=== PATIENT | male | born 1945 | race Asian ===

== ENCOUNTER → 2019-10-26 | Outpatient (CLI) | payer MEDICARE ==
[~2019-10-26] MED LIST: AMANTIDINE PO; ASPIRIN325 MG PO; ASPIRIN81 MG PO; CARBIDOPA/LEVODOPA PO; CEPHALEXIN; CIPROFLOXACIN; CLONAZEPAM0.5 M1 PO; COMTAN200 MG; FINESTERIDE PO; LEVOTHYROXIN PO; MYRBETRIQ25 MG PO; NEUPRO1 EAC1; OXYBUTYNIN CHLOR5 MG PO; RAPAFLO; RAPAFLO8 MG PO; TAMSULOSIN HCL0.4 MG PO; ZOCOR20 MG PO
--- NOTE | 2019-10-26 15:34 | Diagnostic Imaging Report ---
EXAM: Renal Ultrasound INDICATION: ^[id number] ^[id number] ^CYST OF KIDNEY COMPARISON: None TECHNIQUE: Transverse and longitudinal images of the kidneys and bladder were obtained. FINDINGS: Right Kidney: Length: 9.4 cm Appearance: Normal echogenicity. Collecting system: No hydronephrosis Stones: None Cyst/Mass: None Left Kidney: Length: 9.7 cm Appearance: Normal echogenicity. Collecting system: No hydronephrosis Stones: None Cyst/Mass: Multiple exophytic left simple renal cysts, the largest of which is at the upper pole and measures 6.0 x 6.9 x 6.9 cm. Bladder: No mass or calculus. Bilateral ureteral jets visualized. Prevoid volume estimate of 90 cc. The prostate measures 2.9 x 3.0 x 2.8 cm with estimated volume of 13 cc. IMPRESSION: No hydronephrosis or renal calculi. Left simple renal cysts measuring up to 6.9 cm as above. Signed by: Lucero George MD on 10/26/2019 3:30 PM
== END ==
LOC: US 13:46
PROVIDERS: ATTEND Urology
DX: N28.1 Cyst of kidney, acquired (principal)
CPT/HCPCS: 76770

== ENCOUNTER → 2021-01-06 | Outpatient (CLI) | payer MEDICARE | LOC: US 09:27 | PROVIDERS: ATTEND Urology | DX: N28.1 Cyst of kidney, acquired (principal) | CPT/HCPCS: 76770 ==

== ENCOUNTER → 2022-04-25 | Outpatient (CLI) | payer MEDICARE | LOC: US 12:14 | PROVIDERS: ATTEND Urology | DX: N28.1 Cyst of kidney, acquired (principal) | CPT/HCPCS: 76770 ==

== ENCOUNTER → 2022-07-10 | Outpatient (CLI) | payer MEDICARE | LOC: DX 09:28 | PROVIDERS: ATTEND Nurse Practitioner Adult Health | DX: R13.12 Dysphagia, oropharyngeal phase (principal) | CPT/HCPCS: 74220 ==

== ENCOUNTER → 2023-05-23 | Outpatient (CLI) | payer MEDICARE | LOC: US 08:18 | PROVIDERS: ATTEND Urology | DX: N28.1 Cyst of kidney, acquired (principal) | CPT/HCPCS: 76770 ==

== ENCOUNTER 2023-08-19 09:51 | Outpatient (RCR) | payer MEDICARE | END 2023-09-03 | LOC: PT 09:51 | PROVIDERS: ATTEND Specialist | DX: M19.011 Primary osteoarthritis, right shoulder (principal) ==

== ENCOUNTER 2023-09-13 09:00 | Outpatient (RCR) | payer MEDICARE | END 2023-10-03 | LOC: PT 09:00 | PROVIDERS: ATTEND Specialist | DX: M19.011 Primary osteoarthritis, right shoulder (principal) ==